=== PATIENT | female | born 1960 | race Caucasian/White ===

== ENCOUNTER 2020-07-21 04:09 | Emergency (ER) | payer BC ==
--- OUTSIDE RECORDS SUMMARY | 2020-07-21 04:12 | XMS REPORT | Continuity of Care Document ---
:1960 Author Organization [facility] t Address [address] [place] [address] [address] [place] [address] Care Team Providers Name Role Phone Toney QUIGLEY Primary Care Physician Problems This patient has no known problems. Allergies, Adverse Reactions, Alerts Allergy Allergy Status Severity Reaction(s) Onset Inactive Treating Comm ents Source Name Type Date Date Clinician Lisinopr Propensi Active Swelling [place] ty to 10-19 [facility] adverse 00:00: st reaction 00 s to drug Family History Family Member Diagnosis Comments Start Date Stop Date Source Natural father Diabetes [facility] Social History Social Habit Start Date Stop Date Quantity Comments Source Tobacco use and 2017-10-19 2017-10-19 Never used [facility]ist exposure 00:00:00 00:00:00 Alcohol intake 2017-10-19 2017-10-19 Current [facility]ist 00:00:00 00:00:00 non-drinker of alcohol (finding) Sex Ass[birth year] [facility] ethodist 00:00:00 00:00:00 Smoking Status Start Date Stop Date Source Never smoker [place] [facility] Medications Ordered Filled Start Stop Current Ordering Indication Dosage Frequency Signature Comments Components Source Medication Medication Date Date Medication? Clinician (SIG) Name Name LIPITOR 20 Yes Ch mg tablet 10-14 Methodi 00:00: st 00 solifenacin Yes [place] n (VESICARE) 4-13 Method[facility] 5 MG tablet 00:00: st 00 metoprolol Yes [place] ta-hydrochl 4-13 Methodi orothiaz 00:00: st (LOPRESSOR 00 HCT) 50-25 mg per tablet GLUCOPHAGE 2018- Yes [place] 500 mg 3-15 Methodi tablet 00:00: st 00 Procedures This patient has no known procedures. Plan of Care Planned Activity Planned Date Details Comments Source Future Scheduled 2019-12-07 INFLUENZA VACCINE [place] [facility] 00:00:00 [code = INFLUENZA VACCINE] Future Scheduled 2011 BREAST CANCER [facility] Test 00:00:00 SCREENING [code = BREAST CANCER SCREENING] Future Scheduled 2011 COLONOSCOPY SCREENING [place] [facility] 00:00:00 [code = COLONOSCOPY SCREENING] Future Scheduled 2011 SHINGLES VACCINES [place] [facility] 00:00:00 (#1) [code = SHINGLES VACCINES (#1)] Future Scheduled 1982 Screening for [facility] Test 00:00:00 malignant neoplasm of cervix (procedure) [code = 703381762] Future Scheduled 1979 Hepatitis C screening [place] [facility] 00:00:00 (procedure) [code = 597538118] Future Scheduled 1977 COVID-19 VACCINE (1 [place] [facility] 00:00:00 of 2) [code = COVID-19 VACCINE (1 of 2)] Results This patient has no known results.
--- NOTE | 2020-07-21 04:51 | ER ---
Nurse's Notes [facility] Name: Yas Prasad Age: 60 yrs Sex: Female : 1960 Arrival Date: 07/21/2020 Time: 04:14 Bed 8 Private MD: Diagnosis: Injury of conjunctiva and corneal abrasion without foreign body, left eye Presentation: 07/21 04:20 Chief complaint: Patient states: I was getting up and getting ready for work when I sg thought I was putting eye drops in my left eye but it turned out to be false fingernail adhesive. I could feel it drying and sticking my eye together and I was able to peel most of it off the outside of my eye but it feels like there is something kind of scratching my eye. Coronavirus screen: Client denies travel out of the [place] in the last 14 days. Ebola Screen: Patient negative for fever greater than or equal to 101.5 degrees Fahrenheit, and additional compatible Ebola Virus Disease symptoms Patient denies exposure to infectious person. Patient denies travel to an Ebola-affected area in the 21 days before illness onset. No symptoms or risks identified at this time. Initial Sepsis Screen: Does the patient meet any 2 criteria? No. Patient's initial sepsis screen is negative. Risk Assessment: Do you want to hurt yourself or someone else? Patient reports no desire to harm self or others. Onset of symptoms was July 21, 2020. Care prior to arrival: None. Mechanism of Injury: No Mechanism of Injury. Transition of care: patient was not received from another setting of care. 04:20 Acuity: SUKHI 2 sg 04:20 Method Of Arrival: Ambulatory sg 04:20 Initial Sepsis Screen: Does the patient have a suspected source of infection? No. rr5 Patient's initial sepsis screen is negative. Historical: - Allergies: 04:23 Lisinopril; sg - PMHx: 04:23 Hypertension; sg - Immunization history:: Adult Immunizations up to date. - Social history:: Smoking status: Patient denies any tobacco usage or history of. Screenin:47 Abuse screen: Denies threats or abuse. Nutritional screening: No deficits noted. ea Tuberculosis screening: No symptoms or risk factors identified. Fall Risk None identified. Assessment: 04:15 General: Appears in no apparent distress. comfortable, Behavior is calm, cooperative, rr5 appropriate for age. Pain: Denies pain. Neuro: Level of Consciousness is awake, alert, obeys commands, Oriented to person, place, time. Cardiovascular: Capillary refill < 3 seconds Patient's skin is warm and dry. Respiratory: Airway is patent Respiratory effort is even, unlabored, Respiratory pattern is regular, symmetrical. EENT: Eyes mild redness. Derm: Skin temperature is warm. Musculoskeletal: Capillary refill < 3 seconds. 04:31 Reassessment: Poison control notified, . Recommends NO SOLVENT sg added to the eye, typically will resolve 1-4 days, rare that surgery is involved. Can apply mineral oil, abx to help dissolve the glue more quickly, standard eye exam is recommended. 05:00 Reassessment: Patient and/or family updated on plan of care and expected duration. Pain ea level reassessed. Patient is alert, oriented x 3, equal unlabored respirations, skin warm/dry/pink. Discharge instruction given to patient verbalized the understanding of instruction. Pt left ED ambulatory tolerating well. Vital Signs: 04:20 BP 127 / 71; Pulse 71; Resp 19; Temp 98; Pulse Ox 99% ; Weight 68.95 kg; Height 5 ft. 1 rr5 in. (154.94 cm); Pain 0/10; 05:00 BP 114 / 75; Pulse 70; Resp 16; Pulse Ox 98% ; rr5 04:20 Body Mass Index 28.72 (68.95 kg, 154.94 cm) rr5 ED Course: 04:14 Patient arrived in ED. ag3 04:18 Lorne Pacheco MD is Attending Physician. tw4 04:22 Triage completed. sg 04:22 Arm band placed on. sg 04:25 Benson Azar RN is Primary Nurse. rr5 04:47 Patient has correct armband on for positive identification. Bed in low position. Call ea light in reach. Side rails up X 1. 05:00 No provider procedures requiring assistance completed. Patient did not have IV access ea during this emergency room visit. Administered Medications: 04:39 Drug: Tetracaine Drops 0.5 % 1 drops Route: Ophthalmic; Site: left eye; ea 04:47 Drug: Fluorescein Strip 1 strip {Note: per provider.} Route: Ophthalmic; Site: left eye;ea Outcome: 04:51 Discharge ordered by . tw4 04:59 Discharged to home ambulatory, with family. ea 04:59 Condition: stable 04:59 Discharge instructions given to patient, Instructed on discharge instructions, follow up and referral plans. medication usage, Demonstrated understanding of instructions, follow-up care, medications, Prescriptions given X 1. 05:01 Patient left the ED. ea Signatures: Angel Craft RN RN sg Denice Arizmendi RN RN Lorne Ramirez MD MD tw4 Opal Jacobs 3 Benson Azar, RN RN rr5 Corrections: (The following items were deleted from the chart) 05:02 04:00 General: Appears in no apparent distress. comfortable, Behavior is calm, rr5 cooperative, appropriate for age, rr5 05:02 04:00 Pain: Denies pain. rr5 rr5 05:02 04:00 Neuro: Level of Consciousness is awake, alert, obeys commands, Oriented to rr5 person, place, time, rr5 05:02 04:00 Cardiovascular: Capillary refill < 3 seconds Patient's skin is warm and dry. rr5 rr5 05:02 04:00 Respiratory: Airway is patent Respiratory effort is even, unlabored, Respiratory rr5 pattern is regular, symmetrical, rr5 05:02 04:00 EENT: Eyes mild redness. rr5 rr5 05:02 04:00 Derm: Skin temperature is warm rr5 rr5 05:02 04:00 Musculoskeletal: Capillary refill < 3 seconds, rr5 rr5
[2020-07-21] MEDS ORDERED: TETRACAINE HCL 0.5% 4ML OPTH ONE (04:53)
[2020-07-21] MEDS ORDERED: FLUORESCEIN SODIUM 1 MG/WRAP ONE (04:53)
[2020-07-21 05:51] VITALS: BP 127/71; TEMP 98; O2SAT 99
--- NOTE | 2020-07-22 05:04 | EDPHYS ---
Physician Documentation [facility] Name: Yas Prasad Age: 60 yrs Sex: Female : 1960 Arrival Date: 07/21/2020 Time: 04:14 Bed 8 Private MD: ED Physician Lorne Pacheco HPI: 07/21 06:21 This 60 yrs old Female presents to ER via Ambulatory with complaints of SUPER tw4 GLUE LT EYE. 06:21 The patient is experiencing matting or discharge, The patient sustained super glue into tw4 eye. Onset: The symptoms/episode began/occurred today. Duration: the symptoms are continuous. Aggravated by nothing. Alleviated by nothing. The patient has not experienced similar symptoms in the past. Historical: - Allergies: 04:23 Lisinopril; sg - PMHx: 04:23 Hypertension; sg - Immunization history:: Adult Immunizations up to date. - Social history:: Smoking status: Patient denies any tobacco usage or history of. ROS: 06:21 Cardiovascular: Negative for chest pain, palpitations, and edema, Respiratory: Negative tw4 for shortness of breath, cough, wheezing, and pleuritic chest pain, Abdomen/GI: Negative for abdominal pain, nausea, vomiting, diarrhea, and constipation. 06:21 Eyes: Positive for matting, tearing. Exam: 06:21 Constitutional: This is a well developed, well nourished patient who is awake, alert, tw4 and in no acute distress. Eyes: Pupils equal round and reactive to light, extra-ocular motions intact. Lids and lashes normal. Conjunctiva and sclera are non-icteric and not injected. Cornea within normal limits. Periorbital areas with no swelling, redness, or edema. 06:21 Eyes: Periorbital structures: erythema, on the left supraorbital ridge and left lower eyelid, swelling, that is mild, on the left upper eyelid and left lower eyelid, Pupils: no acute changes, equal, round, and reactive to light and accomodation, Extraocular movements: no acute changes, Conjunctiva: injected, in the left eye, Corneas: abrasion, that is small, at 9 o'clock, a fluorescein strip employed to appreciate the findings. Vital Signs: 04:20 BP 127 / 71; Pulse 71; Resp 19; Temp 98; Pulse Ox 99% ; Weight 68.95 kg; Height 5 ft. 1 rr5 in. (154.94 cm); Pain 0/10; 05:00 BP 114 / 75; Pulse 70; Resp 16; Pulse Ox 98% ; rr5 04:20 Body Mass Index 28.72 (68.95 kg, 154.94 cm) rr5 MDM: 04:18 Patient medically screened. tw4 06:21 Differential diagnosis: Corneal abrasion of. Data reviewed: vital signs, nurses notes. tw4 Data interpreted: Pulse oximetry: Interpretation: normal. Counseling: I had a detailed discussion with the patient and/or guardian regarding: the historical points, exam findings, and any diagnostic results supporting the discharge/admit diagnosis. Special discussion: I discussed with the patient/guardian in detail that at this point there is no indication for admission to the hospital. It is understood, however, that if the symptoms persist or worsen the patient needs to return immediately for re-evaluation. Administered Medications: 04:39 Drug: Tetracaine Drops 0.5 % 1 drops Route: Ophthalmic; Site: left eye; ea 04:47 Drug: Fluorescein Strip 1 strip {Note: per provider.} Route: Ophthalmic; Site: left eye;ea Disposition: 07/21/20 04:51 Discharged to Home. Impression: Injury of conjunctiva and corneal abrasion without foreign body, left eye. - Condition is Stable. - Discharge Instructions: Corneal Abrasion, [id number], Superglue Injury. - Prescriptions for Gentamicin 0.3 % Ophthalmic Drops - instill 1 drop by OPHTHALMIC route every 4 hours for 7 days; 1 bottle. - Medication Reconciliation Form, Thank You Letter, Antibiotic Education, Prescription Opioid Use, Work release form, Family Work Release form. - Follow up: Private Physician; When: Upon discharge from the Emergency Department; Reason: Recheck today's complaints, Continuance of care, Re-evaluation by your physician. - Problem is new. - Symptoms have improved. Signatures: Angel Craft, Denice Bynum RN, RN RN ea Wadley, Terrence, MD MD tw4 Benson Azar RN RN rr5 Corrections: (The following items were deleted from the chart) 05:01 04:51 07/21/2020 04:51 Discharged to Home. Impression: Injury of conjunctiva and ea corneal abrasion without foreign body, left eye. Condition is Stable. Forms are Medication Reconciliation Form, Thank You Letter, Antibiotic Education, Prescription Opioid Use. Follow up: Private Physician; When: Upon discharge from the Emergency Department; Reason: Recheck today's complaints, Continuance of care, Re-evaluation by your physician. Problem is new. Symptoms have improved. tw4
== END 2020-07-21 05:01 | disposition home or self-care (01) ==
LOC: ER 04:09
DX: S05.02XA Injury of conjunctiva and corneal abrasion without foreign body, left eye, initial encounter (principal); I10 Essential (primary) hypertension; Z88.8 Allergy status to other drugs, medicaments and biological substances
CPT/HCPCS: 99283

== ENCOUNTER 2025-02-10 21:58 | Emergency (ER) | payer BC ==
[2025-02-10] MEDS ORDERED: ONDANSETRON 4 MG/2 ML VIAL ONE (22:38)
[2025-02-10] MEDS ORDERED: MORPHINE 4 MG/ML SYR ONE (22:38)
[2025-02-11 00:26] LABS: PT Prothrombin Time 12.1 SECONDS (10-13.0); Protime INR 1.07
[2025-02-11 00:27] LABS: Absolute Lymphocytes (CBC) 1.3 K/uL (0.7-4.9); Hematocrit 38.7 % (36.0-45.0); Hemoglobin 13.4 g/dL (12.0-15.0); MCH 29.6 pg (27.0-35.0); MCHC 34.5 g/dL (32.0-36.0); MCV 85.7 fL (80-100); MPV 9.0 fL (7.6-11.3); Nucleated RBC Absolute Count 0.0 (0-0); Nucleated Red Blood Cells % 0.1 % (0-0); RBC Red Blood Cell Count 4.52 M/uL (3.86-4.86); White Blood Count 7.30 thou/uL (4.3-10.9)
[2025-02-11 00:45] LABS: ALT/SGPT 26 U/L (13-56); AST/SGOT 21 U/L (15-37); Albumin 3.7 g/dL (3.4-5.0); Albumin/Globulin Ratio 1.1 (1.1-1.8); Alkaline Phosphatase 104 U/L (45-117); Anion Gap 6.9 mEq/L (5.0-15.0); BUN Blood Urea Nitrogen 14 mg/dL (7-18); Globulin 3.4 g/dL (2.3-3.5); Glucose Level 184 mg/dL (74-106); Magnesium 2.0 mg/dL (1.6-2.4); NT PRO-BNP 23 pg/mL (<125); Potassium 2.9 mEq/L (3.5-5.1); Troponin High Sensitivity 3.7 pg/mL (<58.9)
[2025-02-11 00:52] LABS: Bilirubin Indirect, Calculated 0.2 mg/dL (0.2-0.8)
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
[2025-02-11] MEDS ORDERED: POTASSIUM 25 MEQ EFFERV TAB ONE (01:02)
[2025-02-11 01:43] VITALS: TEMP 97.8
[2025-02-11 01:47] VITALS: BP 118/59; O2SAT 99
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
== END 2025-02-11 01:34 | disposition home or self-care (01) ==
LOC: ER 21:58
DX: R07.9 Chest pain, unspecified (principal); E87.6 Hypokalemia; V49.59XA Passenger injured in collision with other motor vehicles in traffic accident, initial encounter
CPT/HCPCS: 85025; 80048; 36415; 83735; 85610; 80076; 84484; 83880; 71045; 96375; 96374; 99284; J2405